=== PATIENT | male | born 1990 | race Two or more races ===

== ENCOUNTER 2025-03-01 20:40 | Emergency (ER) | payer MEDICAID ==
[~2025-03-01] VITALS: Ht 157.5 cm; Wt 65.9 kg
[2025-03-01 20:59] VITALS: BP 155/91; PULSE 80; RESP 18; TEMP 98.2; O2SAT 100
[2025-03-01 21:25] LABS: PLATELET COUNT (AUTO) 386 K/uL (150-450); RED BLOOD CELL COUNT(AUTO) 4.87 MIL/uL (4.50-5.90); RED CELL DISTRIBUTION WIDTH 12.8 % (11.5-14.5); WHITE BLOOD COUNT (AUTO) 8.5 K/uL (4.5-11.0)
[2025-03-01 21:33] LABS: CALCIUM, TOTAL 9.2 mg/dL (8.8-10.5); CREATININE 0.86 mg/dL (0.60-1.30); GLOMERULAR FILTR. RATE CALC > 60 mL/min (>60); GLUCOSE,RANDOM 119 mg/dL (70-110); SODIUM SERUM 138 mmol/L (136-145); UREA NITROGEN, BLOOD 8 mg/dL (7-18)
[2025-03-01 21:39] LABS: ASPARTATE AMINOTRANSFERASE 37.0 U/L (15-37); TOTAL PROTEIN, SERUM 7.5 g/dL (6.4-8.2)
[2025-03-01 22:05] LABS: APPEARANCE,URINE HAZY (CLEAR); GLUCOSE, URINE (UA) NEGATIVE (NEGATIVE); LEUKOCYTE ESTERASE ,URINE NEGATIVE (NEGATIVE); NITRATE,URINE NEGATIVE (NEGATIVE); OCCULT BLOOD,URINE NEGATIVE (NEGATIVE); SPECIFIC GRAVITIY, URINE 1.016 (1.003-1.030)
[2025-03-01] MEDS: MAG HYDROX/ALUMINUM HYD/SIMETH ES 30 ML SUSPENSION UDCUP PO ONE (23:59)
[2025-03-02] MEDS ORDERED: PANT-31 PO (01:13)
== END 2025-03-02 01:33 | disposition home or self-care (01) ==
LOC: EMS 20:40
DX: K29.70 Gastritis, unspecified, without bleeding (principal)
CPT/HCPCS: 80048; 80076; 81003; 83690; 85025; 93005; 99284